=== PATIENT | male | born 1960 | race American Indian/Alaskan Native ===

== ENCOUNTER 2020-08-29 08:38 | Outpatient (CLI) | payer OTHER ==
--- NOTE | 2020-08-29 10:10 | Cat Scan Report ---
CT ABDOMEN AND PELVIS WITHOUT CONTRAST INDICATION / CLINICAL INFORMATION: MALIGNANT OF NEOPLASM OF PROSTATE. TECHNIQUE: Axial CT images were obtained through the abdomen and pelvis without IV contrast. Sagittal and christopher l reformatted images. All CT scans at this location are performed using CT dose reduction for ALARA b y means of automated exposure control. COMPARISON: None available. FINDINGS: LOWER CHEST: No significant abnormality. LIVER: No significant abnormality. GALLBLADDER: No significant abnormality. BILE DUCTS: No significant abnormality. PANCREAS: No significant abnormality. SPLEEN: No significant abnormality. ADRENALS: No significant abnormality. RIGHT KIDNEY and URETER: No significant abnormality. LEFT KIDNEY and URETER: A large stone is identified in the distal left ureter measuring up to 1.4 x 1 .5 x 2.5 cm. There is minimal dilatation of the left ureter. The left kidney is unremarkable. STOMACH and SMALL BOWEL: No significant abnormality. COLON: Moderate diffuse diverticulosis of the colon. No acute inflammation. APPENDIX: No significant abnormality. PERITONEUM: No free fluid. No free air. No fluid collection. LYMPH NODES: No significant adenopathy. AORTA and ARTERIES: No significant abnormality. IVC and VEINS: No significant abnormality. URINARY BLADDER: No significant abnormality. REPRODUCTIVE ORGANS: No significant abnormality. The prostate gland is normal size and contour ADDITIONAL FINDINGS: Small umbilical hernia containing fat is noted. SKELETAL SYSTEM: No significant abnormality. No suspicious bony lesion. IMPRESSION: No evidence for metastatic disease to the abdomen or pelvis. Large distal left ureteral stone as described. Minimal left hydroureter. Diverticulosis of the colon. Small umbilical hernia containing fat. Signer Name: Anuj Stiles Jr, MD Signed: 08/29/2020 10:05 AM Workstation Name: [id number]
--- NOTE | 2020-08-29 12:57 | Nuclear Medicine Report ---
NUCLEAR MEDICINE BONE SCAN, LIMITED INDICATION / CLINICAL INFORMATION: MALIGNANT NEOPLASM OF PROSTATE. TECHNIQUE: 26 mCi of Tc-99m MDP were injected IV. Images were obtained of the . COMPARISON: No relevant prior imaging study available. FINDINGS: BONES: No osseous lesion or other abnormality. JOINTS: Degenerative activity. SOFT TISSUES: No significant abnormality. ADDITIONAL FINDINGS: None. IMPRESSION: 1. No evidence for osseous metastasis. Signer Name: Kyrie Cisneros MD Signed: 08/29/2020 12:52 PM Workstation Name: [id number]
== END 2020-08-29 08:39 | disposition home or self-care (01) ==
LOC: NM 08:38
PROVIDERS: ATTEND Urology
DX: N20.1 Calculus of ureter (principal); K57.30 Diverticulosis of large intestine without perforation or abscess without bleeding; C61 Malignant neoplasm of prostate; K42.9 Umbilical hernia without obstruction or gangrene
CPT/HCPCS: 74176; 78306; A9503

== ENCOUNTER 2020-09-28 06:31 | Day surgery (SDC) | payer OTHER ==
[2020-09-23 09:54] LABS: Basophils # (Auto) 0.1 K/mm3 (0.0-0.1); Basophils % (Auto) 0.9 % (0.0-1.8); Eosinophils # (Auto) 0.2 K/mm3 (0.0-0.4); Eosinophils % (Auto) 2.5 % (0.0-4.3); Hemoglobin 12.2 gm/dl (11.8-15.2); Lymphocytes # (Auto) 1.4 K/mm3 (1.2-5.4); Lymphocytes % (Auto) 22.9 % (13.4-35.0); Mean Corpuscular HGB Conc 34 % (32-34); Mean Corpuscular Volume 82 fl (84-94); Monocytes # (Auto) 0.6 K/mm3 (0.0-0.8); Monocytes % (Auto) 9.3 % (0.0-7.3); Platelet Count 299 K/mm3 (140-440); Red Blood Count 4.38 M/mm3 (3.65-5.03); Red Cell Distribution Width 16.6 % (13.2-15.2)
[2020-09-23 10:14] LABS: Alanine Aminotransferase 16 units/L (7-56); Albumin 4.2 g/dL (3.9-5); Blood Urea Nitrogen 17 mg/dL (9-20); Calcium 9.5 mg/dL (8.4-10.2); Hemolysis Index 11
[2020-09-23 10:16] LABS: BUN/Creatinine Ratio 28
[~2020-09-28 06:31] MED LIST: BACTERIOSTATIC SODIUM CHLORIDE 0.9% 30 ML VIAL INFILTRATI ONE; LACTATED RINGERS 1,000 ML IV SCH; ceFAZolin/STERILE WATER 2 GM/20 ML SYRINGE IV NR
[2020-09-28] MEDS ORDERED: MIDAZOLAM 2 MG/2 ML INJ IV NR (07:15)
--- NOTE | 2020-09-28 07:15 | Anesthesia Day of Surgery ---
Anesthesia Day of Surgery - Day of Surgery Patient Examined: Yes Patient H&P Reviewed: Yes Patient is NPO: Yes
--- NOTE | 2020-09-28 07:15 | Anesthesia Consultation ---
Anesthesia Consult and Med Hx Date of service: 09/28/20 - Airway Anesthetic Teeth Evaluation: Good ROM Head & Neck: Adequate Mental/Hyoid Distance: Adequate Mallampati Class: Class II Intubation Access Assessment: Good - Pre-Operative Health Status ASA Pre-Surgery Classification: ASA2 Proposed Anesthetic Plan: General - Pulmonary Hx Smoking: Yes (SMOKED CIGARETTES AGE 15- AGE 18 THEN QUIT) Hx Asthma: No (+2FS) COPD: No Hx Pneumonia: No Hx Sleep Apnea: No (ELKE PRE SCREEN HIGH RISK.) - Cardiovascular System Hx Hypertension: Yes Hx Heart Attack/AMI: No Hx Pacemaker: No Hx Internal Defibrillator: No - Central Nervous System Hx Seizures: No Hx Back Pain: Yes Hx Psychiatric Problems: No - Endocrine Hx End Stage Renal Disease: No Hx Cirrhosis: No Hx Liver Disease: No - Hematic Hx Anemia: No Hx Sickle Cell Disease: No - Other Systems Hx Alcohol Use: No Hx Substance Use: No Hx Cancer: Yes Hx Obesity: Yes
[2020-09-28] MEDS ORDERED: HYDROmorphone 1 MG/1 ML INJ IV PRN ×2 (07:16)
[2020-09-28] MEDS ORDERED: ONDANSETRON 4 MG/2 ML INJ IV PRN (07:16)
[2020-09-28] MEDS ORDERED: LIDOCAINE MPF (2%) 20 MG/1 ML VIAL 5 ML ONE (07:38)
[2020-09-28] MEDS ORDERED: ONDANSETRON 4 MG/2 ML INJ ONE (07:38)
[2020-09-28] MEDS ORDERED: PHENYLEPHRINE/NS 1,000 MCG/10 ML SYRINGE (OR USE) IV ONE (07:38)
[2020-09-28] MEDS ORDERED: dexAMETHasone 20 MG/5 ML VIAL ONE (07:38)
[2020-09-28] MEDS ORDERED: GLYCOPYRROLATE 0.4 MG/2 ML INJ ONE (07:38)
[2020-09-28] MEDS ORDERED: fentaNYL 100 MCG/2 ML INJ ONE ×2 (07:39→09:13)
[2020-09-28] MEDS ORDERED: propofoL 200 MG/20 ML VIAL IV ONE (07:39)
[2020-09-28] MEDS ORDERED: IOHEXOL 300 MG/ML 100ML IR ONE (08:45)
[2020-09-28] MEDS ORDERED: WATER FOR IRRIG STERILE 2000 ML IR ONE (09:00)
--- NOTE | 2020-09-28 09:26 | Short Stay Summary ---
Short Stay Documentation Date of service: 09/28/20 - History H&P: obtained from office - Allergies and Medications Current Medications: Allergies No Known Allergies Allergy (Verified 09/28/20 06:23) Home Medications Medication Instructions Recorded Confirmed Last Taken Type One-Daily Multi-Vitamin 1 tab PO DAILY 09/22/20 09/28/20 09/21/20 08:00 History Rosuvastatin Calcium [Crestor] 20 mg PO DAILY 09/22/20 09/28/20 09/27/20 08:00 History Valsartan/Hydrochlorothiazide 160 mg PO DAILY 09/22/20 09/28/20 09/27/20 08:00 History Vitamin E 1 cap PO DAILY 09/22/20 09/28/20 09/21/20 08:00 History Active Medications Cefazolin Sodium (Ancef/Sterile Water 2 Gm/20 Ml) 2 gm IV PREOP NR Stop: 09/28/20 23:59 Hydromorphone HCl (Dilaudid) 0.25 mg IV Q10MIN PRN PRN Reason: Pain, Moderate (4-6) Hydromorphone HCl (Dilaudid) 0.5 mg IV Q10MIN PRN PRN Reason: Pain , Severe (7-10) Lactated Ringer's (Lactated Ringers) 1,000 mls @ 75 mls/hr IV DIRECT CARRINGTON Last Admin: 09/28/20 07:05 Dose: 75 mls/hr Documented by: Midazolam HCl (Versed) 2 mg IV PREOP NR Stop: 09/28/20 23:59 Last Admin: 09/28/20 07:35 Dose: 2 mg Documented by: Ondansetron HCl (Zofran) 4 mg IV ONCE PRN PRN Reason: Nausea And Vomiting - Brief post op/procedure progress note Date of procedure: 09/28/20 Pre-op diagnosis: large left ureteral stone Post-op diagnosis: same Procedure: cysto, rpg, ureteroscopy laser, stent with short internal string-----staged Anesthesia: GETA Surgeon: JUDE NELSON Estimated blood loss: minimal Condition: stable - Hospital course Hospital course: macrobid, norco , brochure, strainer - Disposition Condition at discharge: Stable Disposition: DC-01 TO HOME OR SELFCARE Short Stay Discharge Plan Follow up with: FABY QURESHI [Other] - 7 Days
[2020-09-28 10:27] VITALS: BP 133/69
--- NOTE | 2020-09-28 10:27 | Operative Report ---
PREOPERATIVE DIAGNOSES: Left distal ureteral stone (2 cm), prostate cancer. POSTOPERATIVE DIAGNOSES: Left distal ureteral stone (2 cm), prostate cancer. PROCEDURE: Cystoscopy, bilateral retrograde pyelograms, balloon dilatation, left ureter. Holmium laser lithotripsy of left distal ureteral stone, double-J stent (6-Russian 24 cm) with a short internal string, Liao catheter placed. SURGEON: Venkata Argueta MD ANESTHESIA: General. ESTIMATED BLOOD LOSS: Minimal. FLUIDS: Crystalloid. COMPLICATIONS: No complications. INDICATIONS: This patient is a 60-year-old gentleman initially seen for an elevated PSA of 5. He underwent prostate biopsies, found to have [place] 7 adenocarcinoma of the prostate, 13-[address] scan revealed a large what initially was described as a 1 cm stone. He presents now for intervention of his stone before treatment of his prostate cancer. DESCRIPTION OF PROCEDURE: The patient was taken to the operative suite. The patient was taken to the operative suite, placed in a supine position after adequate general anesthesia. After adequate general anesthesia, placed in a dorsal lithotomy position, prepped and draped in a sterile fashion. Pancystourethroscopy was performed with 22-Russian Storz cystoscope, no urethral abnormalities. Prostate minimally obstructing. Bladder, no tumors or stones were noted. His left ureter was abnormal. It had a wellington deformity on the dorsal aspect and stricture once inside the ureter. Bilateral retrograde pyelograms were obtained with an 8-Russian Edgardo catheter and 8 mL of contrast. No filling defects or obstruction on the right. Left side, obvious stone in the distal ureter. On manipulation, I was able to get 2 wires up the left collecting system under fluoroscopic guidance. Balloon dilatation with a 4 cm 18-Russian balloon, was then able to get a rigid ureteroscope on the yellow stone. Holmium laser lithotripsy with a 500 micron fiber, starting at 4 going up to 17 newberry. Fragmentation of the stone, I was able to reduce the volume and it appears to be a little over half; however, started to develop some bleeding, making it difficult to visualize the stone. At that point, I elected to stop. A 6-Russian 24 cm double-J stent was left indwelling with a short internal string and left a 20-Russian Liao catheter to facilitate passage of the stones and hematuria. Rectal exam was benign. He was extubated and taken to recovery room. He will go home on Macrobid and [place]. JOB# [id number] [facility]
--- NOTE | 2020-09-28 10:37 | Post Anesthesia Evaluation ---
- Post Anesthesia Evaluation Patient Participated: Yes Airway Patent: Yes Stable Respiratory Function: Yes Nausea/Vomiting: No Temp > 96.8F: Yes Pain Manageable: Yes Adequeate Hydration: Yes Anesthesia Complications: No Block Receding Appropriately: Not Applicable Patient on Ventilator: No
[2020-09-28] MEDS ORDERED: HYDROcodone/ACETAMINOPHEN 5-325 MG TAB PO PRN (10:50)
--- NOTE | 2020-09-28 14:16 | Fluoroscopy Report ---
INTRAOPERATIVE FLUOROSCOPY: ABDOMEN INDICATION: History of left ureteral stone. Guidance for left ureteroscopy with stone retrieval and stent placeme nt. TECHNIQUE: Intraoperative spot images were obtained during the procedure. FINDINGS: Aircraft Systems Repairer imaging demonstrates a large left UVJ stone as seen on the prior CT. The stent was subsequently broken apart and a left ureteral stent was placed that appears unremarkable. There is unremarkable o pacification of the right ureter and right renal collecting system. Please see the procedural report for further details. Fluoroscopy Time: 57 seconds. Fluoroscopy Images: 10. Signer Name: Cem Lozoya MD Signed: 09/28/2020 2:11 PM Workstation Name: [id number]
--- NOTE | 2020-09-28 14:16 | Fluoroscopy Report ---
INTRAOPERATIVE FLUOROSCOPY: ABDOMEN INDICATION: History of left ureteral stone. Guidance for left ureteroscopy with stone retrieval and stent placeme nt. TECHNIQUE: Intraoperative spot images were obtained during the procedure. FINDINGS: Shell Plater imaging demonstrates a large left UVJ stone as seen on the prior CT. The stent was subsequently broken apart and a left ureteral stent was placed that appears unremarkable. There is unremarkable o pacification of the right ureter and right renal collecting system. Please see the procedural report for further details. Fluoroscopy Time: 57 seconds. Fluoroscopy Images: 10. Signer Name: Cem Lozoya MD Signed: 09/28/2020 2:11 PM Workstation Name: [id number]
== END 2020-09-28 06:32 | disposition home or self-care (01) ==
LOC: OR 06:31
PROVIDERS: ATTEND Urology
DX: N20.1 Calculus of ureter (principal); Z20.828 Contact with and (suspected) exposure to other viral communicable diseases; C61 Malignant neoplasm of prostate; N13.5 Crossing vessel and stricture of ureter without hydronephrosis; E78.00 Pure hypercholesterolemia, unspecified; I10 Essential (primary) hypertension; E66.9 Obesity, unspecified; Z98.890 Other specified postprocedural states; Z79.899 Other long term (current) drug therapy; Z87.891 Personal history of nicotine dependence; Z68.38 Body mass index [BMI] 38.0-38.9, adult
CPT/HCPCS: 36415; 52356; 74420; 74485; 80053; 85025; A4217; C1726; C1758; C1769; C2617; J0690; J1100; J2250; J2370; J2405; J2704; J3010; J7120; Q9967; U0003

== ENCOUNTER 2020-10-26 05:51 | Day surgery (SDC) | payer OTHER ==
[2020-10-21 10:46] LABS: BUN/Creatinine Ratio 16; Blood Urea Nitrogen 11 mg/dL (9-20); Calcium 9.8 mg/dL (8.4-10.2); Hemolysis Index 0
[~2020-10-26 05:51] MED LIST changes: -BACTERIOSTATIC SODIUM CHLORIDE 0.9% 30 ML VIAL INFILTRATI ONE; -LACTATED RINGERS 1,000 ML IV SCH
[2020-10-26] MEDS ORDERED: LACTATED RINGERS 1,000 ML IV SCH (06:00)
[2020-10-26] MEDS ORDERED: MIDAZOLAM 2 MG/2 ML INJ IV NR (06:00)
[2020-10-26] MEDS ORDERED: LIDOCAINE MPF (2%) 20 MG/1 ML VIAL 5 ML ONE (07:24)
[2020-10-26] MEDS ORDERED: dexAMETHasone 20 MG/5 ML VIAL ONE (07:24)
[2020-10-26] MEDS ORDERED: propofoL 200 MG/20 ML VIAL IV ONE (07:24)
[2020-10-26] MEDS ORDERED: KETOROLAC 30 MG/1 ML INJ ONE (07:24)
--- NOTE | 2020-10-26 07:25 | Anesthesia Consultation ---
Anesthesia Consult and Med Hx Date of service: 10/26/20 - Airway Anesthetic Teeth Evaluation: Good ROM Head & Neck: Adequate Mental/Hyoid Distance: Adequate Mallampati Class: Class III Intubation Access Assessment: Possibly Difficult - Pulmonary Exam CTA: Yes - Cardiac Exam Cardiac Exam: RRR - Pre-Operative Health Status ASA Pre-Surgery Classification: ASA2 Proposed Anesthetic Plan: General - Pulmonary Hx Smoking: Yes (quit 1980) Hx Respiratory Symptoms: No Hx Sleep Apnea: No (ELKE PRE SCREEN HIGH RISK.) - Cardiovascular System Hx Hypertension: Yes Hx Heart Attack/AMI: No Hx Percutaneous Transluminal Coronary Angioplasty (PTCA): No - Central Nervous System CVA: No Hx Back Pain: Yes - Gastrointestinal Hx Gastroesophageal Reflux Disease: No - Endocrine Hx Renal Disease: No Hx Liver Disease: No Hx Insulin Dependent Diabetes: No Hx Non-Insulin Dependent Diabetes: No Hx Thyroid Disease: No - Other Systems Hx Cancer: Yes (prostate ca) Hx Obesity: Yes (BMI 38) - Additional Comments Anesthesia Medical History Comments: No hx anesthetic complications.
--- NOTE | 2020-10-26 07:25 | Anesthesia Day of Surgery ---
Anesthesia Day of Surgery - Day of Surgery Patient Examined: Yes Patient H&P Reviewed: Yes Patient is NPO: Yes
[2020-10-26] MEDS ORDERED: fentaNYL 100 MCG/2 ML INJ IV PRN (07:30)
[2020-10-26] MEDS ORDERED: ONDANSETRON 4 MG/2 ML INJ IV PRN (08:00)
[2020-10-26] MEDS ORDERED: WATER FOR IRRIG STERILE 2000 ML IR ONE (08:15)
[2020-10-26] MEDS ORDERED: fentaNYL 100 MCG/2 ML INJ ONE (08:42)
--- NOTE | 2020-10-26 09:30 | Short Stay Summary ---
Short Stay Documentation Date of service: 10/26/20 - History H&P: obtained from office - Allergies and Medications Current Medications: Allergies No Known Allergies Allergy (Verified 09/28/20 06:23) Home Medications Medication Instructions Recorded Confirmed Last Taken Type One-Daily Multi-Vitamin 1 tab PO DAILY 09/22/20 10/26/20 10/25/20 09:00 History Rosuvastatin Calcium [Crestor] 10 mg PO DAILY 09/22/20 10/26/20 10/25/20 09:00 History Benicar HCT 40-12.5 mg 1 tab PO DAILY 10/19/20 10/26/20 10/25/20 09:00 History Active Medications Cefazolin Sodium (Ancef/Sterile Water 2 Gm/20 Ml) 2 gm IV PREOP NR Stop: 10/26/20 23:59 Fentanyl (Sublimaze) 50 mcg IV Q5MIN PRN PRN Reason: Pain , Severe (7-10) Stop: 10/26/20 17:00 Lactated Ringer's (Lactated Ringers) 1,000 mls @ 100 mls/hr IV DIRECT CARRINGTON Stop: 10/26/20 23:59 Last Admin: 10/26/20 06:10 Dose: 100 mls/hr Documented by: Midazolam HCl (Versed) 2 mg IV PREOP NR Stop: 10/26/20 23:00 Last Admin: 10/26/20 07:28 Dose: 2 mg Documented by: Ondansetron HCl (Zofran) 4 mg IV ONCE PRN PRN Reason: Nausea And Vomiting Stop: 10/26/20 17:00 - Brief post op/procedure progress note Date of procedure: 11/02/20 Pre-op diagnosis: left ureteral stone Post-op diagnosis: same Procedure: cysto, rpg, left ureteroscopy , laser large stone, basket extraction, stent with internal string Anesthesia: GETA Surgeon: JUDE NELSON Condition: stable - Hospital course Hospital course: norco bactrim post op info on chart - Disposition Condition at discharge: Stable Disposition: DC-01 TO HOME OR SELFCARE Short Stay Discharge Plan Follow up with: FABY CASH [Other] - 7 Days
[2020-10-26] MEDS ORDERED: PHENYLEPHRINE/NS 1,000 MCG/10 ML SYRINGE (OR USE) IV ONE (09:40)
[2020-10-26] MEDS ORDERED: HYDROcodone/ACETAMINOPHEN 5-325 MG TAB PO PRN (10:00)
[2020-10-26 10:12] VITALS: BP 116/73
--- NOTE | 2020-10-26 10:25 | Fluoroscopy Report ---
INTRAOPERATIVE FLUOROSCOPY INDICATION / CLINICAL INFORMATION: LT URETERAL STONE. TECHNIQUE: Intraoperative spot images were obtained during the procedure. FINDINGS: Intraoperative fluoroscopy images for retrograde urography. See operative/procedure note by performing physician for full details. Fluoroscopy Time: 35 seconds. Fluoroscopy Images: 4. Signer Name: Kyrie Cisneros MD Signed: 10/26/2020 10:20 AM Workstation Name: [id number]
--- NOTE | 2020-10-26 13:37 | Post Anesthesia Evaluation ---
- Post Anesthesia Evaluation Patient Participated: Yes Airway Patent: Yes Stable Respiratory Function: Yes Nausea/Vomiting: No Temp > 96.8F: Yes Pain Manageable: Yes Adequeate Hydration: Yes Anesthesia Complications: No
--- NOTE | 2020-10-26 18:13 | Operative Report ---
PREOPERATIVE DIAGNOSIS: Left distal ureteral stone, 2 cm (staged procedure). POSTOPERATIVE DIAGNOSIS: Left distal ureteral stone, 2 cm (staged procedure). PROCEDURES PERFORMED: Cystoscopy, left retrograde pyelogram, left ureteroscopy, holmium laser lithotripsy, basket stone extraction, double-J stent exchange. SURGEON: Venkata Argueta MD ANESTHESIA: General. ESTIMATED BLOOD LOSS: Minimal. FLUIDS: Crystalloid. COMPLICATIONS: No complications. INDICATIONS: This patient is a 60-year-old gentleman known to our service, history of prostate cancer. Part of his workup was a CT abdomen and pelvis, which revealed a distal stone. He underwent ureteroscopy of a large 2 cm egg-like stone what appears to be an ureterocele. Stent was placed previously and holmium lithotripsy of the stone was performed; however, due to some bleeding and edema, could not fully treat the stone. He presents now for reevaluation. DESCRIPTION OF PROCEDURE: The patient was taken to the operative suite, placed in a supine position. After adequate general anesthesia, placed in a dorsal lithotomy position, prepped and draped in a sterile fashion. Pancystourethroscopy was performed with a 22-Lithuanian Storz cystoscope, no urethral or prostate abnormalities; his bladder, no tumors or stones; however, there was ureterocele on the left with obvious stone and stent on kings[place] machine operator and visualization of the lower aspect of the stent. Meatotomies were obtained, small cut into the 12 o'clock position of the ureter. At this point, I was able to advance the 22-Lithuanian cystoscope into this dilated ureterocele. Obvious large stone could be appreciated. Stent was removed. A 0.035 Glidewire was placed. Holmium lithotripsy was performed at 520 micron fiber, starting at 4 newberry going up to 14 newberry. Adequate fragmentation could be appreciated, extracted some of these fragments, which will be given to the patient and sent for routine pathologic evaluation. A new 6-Lithuanian 24 cm stent was placed with a short internal string. The patient tolerated the procedure well. Rectal exam was benign. He was extubated and taken to recovery room in stable condition. He will go home on Bactrim and [place] and follow up in the office. JOB# [id number] [facility]/NTS
== END 2020-10-26 10:35 | disposition home or self-care (01) ==
LOC: OR 05:51
PROVIDERS: ATTEND Urology
DX: N20.1 Calculus of ureter (principal); Z20.828 Contact with and (suspected) exposure to other viral communicable diseases; E78.00 Pure hypercholesterolemia, unspecified; I10 Essential (primary) hypertension; E66.9 Obesity, unspecified; Z79.899 Other long term (current) drug therapy; Z87.891 Personal history of nicotine dependence; Z98.890 Other specified postprocedural states; Z85.46 Personal history of malignant neoplasm of prostate; Z68.38 Body mass index [BMI] 38.0-38.9, adult
CPT/HCPCS: 36415; 52356; 74420; 80048; A4217; C1758; C1769; C2617; J0690; J1100; J1885; J2250; J2370; J2405; J2704; J3010; J7120; Q9967; U0003

== ENCOUNTER 2021-01-02 05:59 | Observation (INO) | payer OTHER ==
[2020-12-28 10:37] LABS: Hematocrit 37.1 % (35.5-45.6); Hemoglobin 12.3 gm/dl (11.8-15.2); Mean Corpuscular HGB Conc 33 % (32-34); Mean Corpuscular Volume 81 fl (84-94); Platelet Count 276 K/mm3 (140-440); Red Blood Count 4.55 M/mm3 (3.65-5.03); Red Cell Distribution Width 18.5 % (13.2-15.2)
--- NOTE | 2020-12-28 10:37 | Anesthesia Consultation ---
Anesthesia Consult and Med Hx Date of service: 01/02/21 - Airway Anesthetic Teeth Evaluation: Good ROM Head & Neck: Adequate Mental/Hyoid Distance: Adequate Mallampati Class: Class III Intubation Access Assessment: Probably Good - Pre-Operative Health Status ASA Pre-Surgery Classification: ASA2 Proposed Anesthetic Plan: General Nerve Block: TAP - Pulmonary Hx Smoking: Yes (STARTED AGE 15 YR QUIT AGE 18 YRS) Hx Asthma: No Hx Respiratory Symptoms: No (+2FS) COPD: No Hx Pneumonia: No Hx Sleep Apnea: No (ELKE PRE SCREEN HIGH RISK) - Cardiovascular System Hx Hypertension: Yes Hx Heart Attack/AMI: No Hx Percutaneous Transluminal Coronary Angioplasty (PTCA): No Hx Pacemaker: No Hx Internal Defibrillator: No Hx Heart Murmur: No - Central Nervous System Hx Seizures: No CVA: No Hx Back Pain: No Hx Psychiatric Problems: No - Gastrointestinal Hx Gastroesophageal Reflux Disease: No - Endocrine Hx Renal Disease: No Hx End Stage Renal Disease: No Hx Cirrhosis: No Hx Liver Disease: No Hx Insulin Dependent Diabetes: No Hx Non-Insulin Dependent Diabetes: No Hx Thyroid Disease: No - Hematic Hx Anemia: No Hx Sickle Cell Disease: No - Other Systems Hx Alcohol Use: No Hx Substance Use: No Hx Cancer: Yes Hx Obesity: Yes (BMI 38)
[2020-12-28 10:53] LABS: Alanine Aminotransferase 16 units/L (7-56); Albumin 4.2 g/dL (3.9-5); Blood Urea Nitrogen 12 mg/dL (9-20); Calcium 9.4 mg/dL (8.4-10.2); Hemolysis Index 2
[2020-12-28 11:07] LABS: BUN/Creatinine Ratio 17
[2021-01-02] MEDS ORDERED: GABAPENTIN 300 MG CAP PO NR (06:00)
[2021-01-02] MEDS ORDERED: CELECOXIB 200 MG CAP PO NR (06:00)
[2021-01-02] MEDS ORDERED: fentaNYL 100 MCG/2 ML INJ IV PRN (06:00)
[2021-01-02] MEDS ORDERED: MIDAZOLAM 2 MG/2 ML INJ IV NR (06:00)
[2021-01-02] MEDS ORDERED: ACETAMINOPHEN 500 MG TAB PO SCH (06:00)
[2021-01-02] MEDS ORDERED: BACTERIOSTATIC SODIUM CHLORIDE 0.9% 30 ML VIAL INFILTRATI ONE (06:04)
[2021-01-02] MEDS: LACTATED RINGERS 1,000 ML IV SCH ×2 (06:55→15:30)
[2021-01-02] MEDS ORDERED: SODIUM CHLORIDE P/F VIAL 10 ML 30 ML ONE (07:06)
[2021-01-02] MEDS ORDERED: BUPIVACAINE-EPINEPHRINE/PF 0.5%-1:200,000 (30 ML) VIAL INFILTRATI ONE ×2 (07:06→07:10)
[2021-01-02] MEDS ORDERED: LIDOCAINE (1%) 10 MG/1 ML VIAL 20 ML MDV ONE (07:06)
[2021-01-02] MEDS ORDERED: cloNIDine/PF 1,000 MCG/10 ML VIAL EP ONE (07:06)
[2021-01-02] MEDS ORDERED: dexAMETHasone 4 MG/ML VIAL ONE (07:06)
[2021-01-02] MEDS ORDERED: CALCIUM CHLORIDE 1,000 MG/10 ML SYRINGE IV ONE ×2 (07:10→09:03)
[2021-01-02] MEDS ORDERED: CITRIC ACID-SOD CITRATE 500 ML IV ONE (07:10)
[2021-01-02] MEDS ORDERED: THROMBIN (RECOMBINANT) 5,000 UNIT VIAL TP ONE ×2 (07:10→09:02)
[2021-01-02] MEDS ORDERED: NEOSTIGMINE 10MG/10 ML INJ MDV ONE (07:34)
[2021-01-02] MEDS ORDERED: ONDANSETRON 4 MG/2 ML INJ ONE (07:34)
[2021-01-02] MEDS ORDERED: ROCURONIUM 50 MG/5 ML INJ IV ONE (07:34)
[2021-01-02] MEDS ORDERED: HYDROmorphone 1 MG/1 ML INJ ONE (07:34)
[2021-01-02] MEDS ORDERED: LIDOCAINE MPF (2%) 20 MG/1 ML VIAL 5 ML ONE (07:34)
[2021-01-02] MEDS ORDERED: PHENYLEPHRINE/NS 1,000 MCG/10 ML SYRINGE (OR USE) IV ONE (07:34)
[2021-01-02] MEDS ORDERED: GLYCOPYRROLATE 0.4 MG/2 ML INJ ONE (07:34)
[2021-01-02] MEDS ORDERED: dexAMETHasone 20 MG/5 ML VIAL ONE (07:34)
[2021-01-02] MEDS ORDERED: propofoL 200 MG/20 ML VIAL IV ONE (07:35)
--- NOTE | 2021-01-02 07:37 | Anesthesia Day of Surgery ---
Anesthesia Day of Surgery - Day of Surgery Patient Examined: Yes Patient H&P Reviewed: Yes Patient is NPO: Yes
[2021-01-02] MEDS ORDERED: ONDANSETRON 4 MG/2 ML INJ IV PRN (08:00)
[2021-01-02] MEDS ORDERED: ceFAZolin/STERILE WATER 2 GM/20 ML SYRINGE IV NR (08:00)
[2021-01-02] MEDS ORDERED: HYDROmorphone 1 MG/1 ML INJ IV PRN (08:00)
[2021-01-02] MEDS ORDERED: LACTATED RINGERS 1,000 ML ONE (08:56)
[2021-01-02] MEDS ORDERED: WATER FOR IRRIG STERILE 1,500 ML BOTTLE IR ONE (09:02)
[2021-01-02] MEDS ORDERED: SODIUM CHLORIDE 0.9% IRRIG SOLN 2000 ML IR ONE (09:03)
[2021-01-02] MEDS ORDERED: SODIUM CHLORIDE 0.9% 250ML 0 ML ONE (09:36)
[2021-01-02] MEDS ORDERED: METHYLENE BLUE 50 MG/10 ML AMP ONE (09:36)
--- NOTE | 2021-01-02 10:59 | Short Stay Summary ---
Short Stay Documentation Date of service: 01/02/21 - History H&P: obtained from office - Allergies and Medications Current Medications: Allergies No Known Allergies Allergy (Verified 09/28/20 06:23) Home Medications Medication Instructions Recorded Confirmed Last Taken Type One-Daily Multi-Vitamin 1 tab PO DAILY 09/22/20 12/26/20 01/01/21 History Rosuvastatin Calcium [Crestor] 10 mg PO DAILY 09/22/20 12/26/20 01/01/21 History Benicar HCT 40-12.5 mg 1 tab PO DAILY 10/19/20 12/26/20 01/01/21 History Active Medications Acetaminophen (Acetaminophen 500 Mg Tab) 1,000 mg PO PREOP CARRINGTON Last Admin: 01/02/21 06:30 Dose: 1,000 mg Documented by: Cefazolin Sodium (Cefazolin/Sterile Water 2 Gm/20 Ml Syringe) 2 gm IV PREOP NR Stop: 01/02/21 21:00 Celecoxib (Celecoxib 200 Mg Cap) 200 mg PO PREOP NR Stop: 01/02/21 23:59 Last Admin: 01/02/21 06:30 Dose: 200 mg Documented by: Fentanyl (Fentanyl 100 Mcg/2 Ml Inj) 100 mcg IV ONCE PRN PRN Reason: sedation for nerve block Stop: 01/02/21 23:59 Last Admin: 01/02/21 07:17 Dose: 100 mcg Documented by: Gabapentin (Gabapentin 300 Mg Cap) 300 mg PO PREOP NR Stop: 01/02/21 23:59 Last Admin: 01/02/21 06:30 Dose: 300 mg Documented by: Hydromorphone HCl (Hydromorphone 1 Mg/1 Ml Inj) 0.5 mg IV Q10MIN PRN PRN Reason: Pain , Severe (7-10) Stop: 01/02/21 17:00 Lactated Ringer's (Lactated Ringers) 1,000 mls @ 100 mls/hr IV DIRECT CARRINGTON Stop: 01/02/21 23:59 Last Admin: 01/02/21 06:55 Dose: 100 mls/hr Documented by: Midazolam HCl (Midazolam 2 Mg/2 Ml Inj) 2 mg IV PREOP NR Stop: 01/02/21 23:59 Last Admin: 01/02/21 07:17 Dose: 2 mg Documented by: Ondansetron HCl (Ondansetron 4 Mg/2 Ml Inj) 4 mg IV ONCE PRN PRN Reason: Nausea And Vomiting Stop: 01/02/21 21:00 - Brief post op/procedure progress note Date of procedure: 01/02/21 Pre-op diagnosis: prostate cancer Post-op diagnosis: same Procedure: robotic prostatectomy Anesthesia: CHRIS Surgeon: JUDE NELSON Estimated blood loss: other (600cc) Pathology: list (prostate) Specimen disposition: to lab Condition: stable - Hospital course Hospital course: bactrim,norco, & post op info DANIEL REMOVED --HOME WITH [facility] - Disposition Condition at discharge: Stable Short Stay Discharge Plan Follow up with: LAYLA MATA [Other] - 7 Days
[2021-01-02] MEDS ORDERED: NALOXONE 0.4 MG/1 ML INJ IV PRN (11:23)
[2021-01-02] MEDS ORDERED: HYDROcodone/ACETAMINOPHEN 5-325 MG TAB PO PRN (11:23)
[2021-01-02] MEDS ORDERED: MORPHINE 2 MG/1 ML INJ IV PRN (11:23)
--- NOTE | 2021-01-02 12:07 | Consultation ---
History of Present Illness - Reason for Consult Consult date: 01/02/21 Requesting physician: JUDE NELSON - History of Present Illness This is a 52-year-old male with prostate cancer, hypertension and hyperlipidemia who is s/p robotic prostatectomy. Patient denies any chest pain, cough, difficulty breathing, fevers, chills, nausea/vomiting/diarrhea, hemoptysis, n ight sweats, recent travel or recent known exposure to COVID-19. Patient does state that he had a recent weight loss without trying of about 10 pounds over the past 4 months. We were consulted for medical management while inpatient. Past History Past Medical History: hypertension, hyperlipidemia Past Surgical History: Other (Nephrolithiasis ( August or September 2020)) Social history: single, Lives alone, full code. denies: smoking, alcohol abuse, prescription drug abuse, IV drug use Family history: hypertension Medications and Allergies Allergies Allergy/AdvReac Type Severity Reaction Status Date / Time No Known Allergies Allergy Verified 09/28/20 06:23 Home Medications Medication Instructions Recorded Confirmed Last Taken Type One-Daily Multi-Vitamin 1 tab PO DAILY 09/22/20 12/26/20 01/01/21 History Rosuvastatin Calcium [Crestor] 10 mg PO DAILY 09/22/20 12/26/20 01/01/21 History Benicar HCT 40-12.5 mg 1 tab PO DAILY 10/19/20 12/26/20 01/01/21 History Active Meds: Active Medications Acetaminophen (Acetaminophen 500 Mg Tab) 1,000 mg PO PREOP CARR[place] Last Admin: 01/02/21 06:30 Dose: 1,000 mg Documented by: Hydrocodone Bitart/Acetaminophen (Hydrocodone/Acetaminophen 5-325 Mg Tab) 2 each PO Q4H PRN PRN Reason: Pain, Moderate (4-6) Cefazolin Sodium (Cefazolin/Sterile Water 2 Gm/20 Ml Syringe) 2 gm IV PREOP NR Stop: 01/02/21 21:00 Celecoxib (Celecoxib 200 Mg Cap) 200 mg PO PREOP NR Stop: 01/02/21 23:59 Last Admin: 01/02/21 06:30 Dose: 200 mg Documented by: Fentanyl (Fentanyl 100 Mcg/2 Ml Inj) 100 mcg IV ONCE PRN PRN Reason: sedation for nerve block Stop: 01/02/21 23:59 Last Admin: 01/02/21 07:17 Dose: 100 mcg Documented by: Gabapentin (Gabapentin 300 Mg Cap) 300 mg PO PREOP NR Stop: 01/02/21 23:59 Last Admin: 01/02/21 06:30 Dose: 300 mg Documented by: Hydromorphone HCl (Hydromorphone 1 Mg/1 Ml Inj) 0.5 mg IV Q10MIN PRN PRN Reason: Pain , Severe (7-10) Stop: 01/02/21 17:00 Lactated Ringer's (Lactated Ringers) 1,000 mls @ 100 mls/hr IV DIRECT C[place] Stop: 01/02/21 23:59 Last Admin: 01/02/21 06:55 Dose: 100 mls/hr Documented by: Cefazolin Sodium (Ancef/Ns 1 Gm/50 Ml) 1 gm in 50 mls @ 100 mls/hr IV Q8H CARRINGTON; Protocol Stop: 01/03/21 00:29 Midazolam HCl (Midazolam 2 Mg/2 Ml Inj) 2 mg IV PREOP NR Stop: 01/02/21 23:59 Last Admin: 01/02/21 07:17 Dose: 2 mg Documented by: Miscellaneous Medication (Benicar Hct 40-12.5 Mg) 1 tab PO DAILY C[place] Miscellaneous Medication (One-Daily Multi-Vitamin) 1 tab PO DAILY C[place] Miscellaneous Medication (Rosuvastatin Calcium [Crestor]) 10 mg PO DAILY C[place] Morphine Sulfate (Morphine 2 Mg/1 Ml Inj) 2 mg IV Q4H PRN PRN Reason: Pain, Moderate (4-6) Naloxone HCl (Naloxone 0.4 Mg/1 Ml Inj) 0.1 mg IV Q2MIN PRN PRN Reason: Res Rate </= 8 or 02 SAT < 92% Ondansetron HCl (Ondansetron 4 Mg/2 Ml Inj) 4 mg IV ONCE PRN PRN Reason: Nausea And Vomiting Stop: 01/02/21 21:00 Review of Systems Constitutional: weight loss, no weight gain, no fever, no chills, no sweats, no night sweats, no anorexia, no fatigue, no lethargy Ears, nose, mouth and throat: no ear pain, no ear discharge, no tinnitis, no decreased hearing, no nose pain, no nasal congestion, no nasal discharge, no sinus pressure, no sinus pain, no epistaxis, no bleeding gums Cardiovascular: edema (Occasional bilateral ankle edema), no chest pain, no orthopnea, no palpitations, no rapid/irregular heart beat, no syncope, no lightheadedness, no shortness of breath Respiratory: no cough, no cough with sputum, no excessive sputum, no hemoptysis, no shortness of breath, no dyspnea on exertion, no pleurisy, no pain on inspiration, no sleep apnea, no respiratory infections, no home oxygen Gastrointestinal: heartburn (Occasional), no abdominal pain, no nausea, no vomiting, no diarrhea, no constipation, no change in bowel habits, no hematemesis, no coffee ground emesis, no BRBPR, no melena, no hematochezia, no loss of appetite, no early satiety Genitourinary Male: kidney stones, no dysuria, no hematuria, no flank pain, no discharge, no urinary frequency, no urinary hesitancy, no nocturia, no incontinence Rectal: no pain, no incontinence, no bleeding Musculoskeletal: no neck stiffness, no neck pain, no shooting arm pain, no arm numbness/tingling, no low back pain, no shooting leg pain, no leg numbness/tingling, no morning stiffness, no muscle weakness, no frequent falls Integumentary: no rash, no pruritis, no redness, no sores, no wounds, no jaundice, no boils, no color changes Neurological: no head injury, no transient paralysis, no paralysis, no weakness, no parathesias, no numbness, no tingling, no seizures, no syncope, no tremors, no headaches, no memory loss, no changes in smell/taste Psychiatric: no anxiety, no memory loss, no change in appetite, no suicidal ideation, no disorientation Endocrine: weight change, no cold intolerance, no heat intolerance, no polyphagia, no excessive thirst, no polydipsia, no polyuria, no nocturia, no increase in ring/shoe/hat size, no palpatations Hematologic/Lymphatic: no easy bruising, no easy bleeding Allergic/Immunologic: no urticaria, no allergic rhinitis, no wheezing Exam - Constitutional Vitals: Temp Pulse Resp BP Pulse Ox 97.5 F L 73 17 130/75 98 01/02/21 11:32 01/02/21 12:00 01/02/21 12:00 01/02/21 12:00 01/02/21 12:00 General appearance: Present: no acute distress - EENT Eyes: Present: PERRL, EOM intact ENT: hearing intact, clear oral mucosa, dentition normal - Neck Neck: Present: normal ROM - Respiratory Respiratory effort: normal Respiratory: bilateral: CTA - Cardiovascular Rhythm: regular Heart Sounds: Present: S1 & S2. Absent: systolic murmur, diastolic murmur - Extremities Extremities: no ischemia, pulses intact, pulses symmetrical, No edema, normal te mperature, normal color, Full ROM Peripheral Pulses: within normal limits - Abdominal General gastrointestinal: Present: soft, non-tender, non-distended, absent bowel sounds Male genitourinary: Present: tender, penile edema - Integumentary Integumentary: Present: clear, warm, dry - Musculoskeletal Musculoskeletal: strength equal bilaterally - Psychiatric Psychiatric: appropriate mood/affect, cooperative - Neurologic Neurologic: CNII-XII intact, no focal deficits, moves all extremities - Allied Health Allied health notes reviewed: nursing Results - Labs CBC & Chem 7: 12/28/20 09:20 12/28/20 09:20 Assessment and Plan Prostate cancer -Preop Ancef 2 g x 1 -Postop Ancef x2 -S/p robotic prostatectomy on 01/02 -Analgesia as needed -Pulmonary hygiene Hypertension -Resume home antihypertensive regimen -Blood pressure monitoring per protocol -Hydralazine as needed for SBP greater than 160 Hypercholesterolemia -Continue home statin therapy Obesity -Encouraged lifestyle and dietary changes DVT prophylaxis -SCDs to bilateral lower extremity while in bed
--- NOTE | 2021-01-02 13:02 | Operative Report ---
PREOPERATIVE DIAGNOSIS: Prostate cancer. POSTOPERATIVE DIAGNOSIS: Prostate cancer. PROCEDURE: Robotic-assisted laparoscopic prostatectomy, bladder neck suspension. SURGEON: Venkata Argueta MD MANAGER OF SOFTWARE: Veronique Tovar. ANESTHESIA: General. ESTIMATED BLOOD LOSS: 600 mL. FLUIDS: Crystalloid and Cell Saver. DRAINS: Shayan-Duvall drain x 1. COMPLICATIONS: No complications. INDICATIONS: This patient is a 60-year-old gentleman who was found to have an elevated PSA 5.8 and underwent transrectal ultrasound. On biopsy of his prostate, he was found to have [place] 3+4 in 13 or 14 cores. Bone scan and CT scan negative, except for a left 1 cm distal stone, which this was addressed prior to his prostate surgery. He presents now for prostatectomy. Risks, benefits, and complications were explained. DESCRIPTION OF PROCEDURE: The patient was taken to the operative suite, placed in a supine position. After adequate general anesthesia, he was then placed in a modified dorsal lithotomy position. Abdominal anesthetic block was also administered. Liao catheter was placed on the field. A 1 cm supraumbilical incision was made with the Bovie. Towel clips were placed. Drop test with the Veress needle was negative. Opening pressure was 2 cm of water. Insufflation to 15 cm of water was performed without difficulty. A 15 cm cephalad to pubic symphysis was marked and then 10 cm lateral and additional 10 cm lateral was used for 8-mm robotic ports on the left x2 and an 8-mm robotic port on the left followed by a 10-mm helper port and a 5-mm helper port. They were all placed under direct vision. Robotic cart was docked between the legs. The patient was placed in exaggerated dorsal lithotomy position. Next, no signs of bleeding or metastasis could be appreciated. The patient had significant amounts of adipose tissue that made it somewhat tedious to do his procedure. Veronique Tovar was present at the bedside throughout the procedure to assist with surgical dissection. Next, attention was taken to the posterior aspect of the prostate and bladder. Second arch was scored. Dissection was taken to expose the seminal vesicles and vas deferens. Dissection was then taken to the apex of the prostate. Copious irrigation was performed. Adequate hemostasis was achieved. Althea was placed due to the oozing from the adipose tissue. Next, attention was taken to the anterior abdominal wall, lateral to the lateral umbilical ligament was scored bilaterally and then across the midline to drop the bladder. Endopelvic fascia was opened bilaterally exposing the dorsal vein complex, which was controlled with a 60-mm vascular stapler. Next, attention was taken to the bladder neck, which was transected anteriorly. Liao catheter was pulled anterior to assist with posterior dissection. In 12 o'clock position, 2-0 Vicryl stitch was placed in the bladder neck to assist with dissection. Posterior bladder neck was transected exposing the seminal vesicles and vas deferens. They were pulled anteriorly. Lateral pedicles were controlled with 60-mm vascular stapler. Attention was then taken to the posterior aspect of the prostate. This was dissected to free up the apex. The apex of the urethra was transected as well. Prostate was dissected free, placed in the EndoCatch bag. Bladder neck was then controlled. Bladder neck anastomotic stitch was placed using 2-0 V-Loc stitch and then the corresponding aspect of the urethra, running stitch was placed bilaterally followed by a new 18-[place] Liao catheter. New Liao catheter was placed, 15 mL of sterile water was in the balloon, irrigated clear. Bladder neck suspension placing the V-Loc stitch in the posterior aspect of the pubic rami bilaterally. [place] were removed. Copious irrigation was performed. Adequate hemostasis achieved. Platelet-rich plasma and platelet poor plasma was injected around the anastomosis as well as a platelet membrane. A 10-mm Shayan-Duvall drain was brought out through the 8-mm port on the left side. The ports were removed with no signs of bleeding. The patient was undocked. The supraumbilical port was removed. The incision was extended to allow removal of the prostate. A #1 Vicryl [id number] stitch was placed to close the supraumbilical incision. A 2-0 Vicryl in an interrupted fashion was used to close the skin on the 8-mm incisions. The Liao catheter sideport was folded over and tied with 0 silk in an interrupted fashion. The patient tolerated the procedure well. He was extubated and taken to recovery room. He will be observed overnight. JOB# [id number] [facility]
--- NOTE | 2021-01-02 13:49 | Post Anesthesia Evaluation ---
- Post Anesthesia Evaluation Patient Participated: Yes Airway Patent: Yes Stable Respiratory Function: Yes Nausea/Vomiting: No Pain Manageable: Yes Adequeate Hydration: Yes Anesthesia Complications: Yes Block Receding Appropriately: Yes (TAP block for post op analgesia)
[2021-01-02] MEDS: ceFAZolin/NS 1 GM/50 ML 1 GM/50 ML BAG IV SCH ×2 (15:50→23:53)
[2021-01-03 06:44] LABS: Hemoglobin 9.8 gm/dl (11.8-15.2); Mean Corpuscular HGB Conc 33 % (32-34); Mean Corpuscular Volume 81 fl (84-94); Platelet Count 235 K/mm3 (140-440)
[2021-01-03 07:01] LABS: Blood Urea Nitrogen 14 mg/dL (9-20); Calcium 8.5 mg/dL (8.4-10.2); Hemolysis Index 0
[2021-01-03 07:07] LABS: BUN/Creatinine Ratio 20
[2021-01-03 07:39] VITALS: BP 150/67
[2021-01-03] MEDS ORDERED: NON-FORMULARY EACH (Rosuvastatin Calcium [Crestor] 20 MG Tablet) PO SCH (10:00)
[2021-01-03] MEDS ORDERED: MULTIVITAMINS,THER W-MINERALS TAB PO SCH (10:00)
[2021-01-03] MEDS ORDERED: [UNRECOGNIZED DRUG - OTHER] PO SCH (10:00)
[2021-01-03] MEDS ORDERED: LOSARTAN 50 MG TAB PO SCH (10:00)
[2021-01-03] MEDS ORDERED: hydroCHLOROthiazide 12.5 MG CAP PO SCH (10:00)
[2021-01-03] MEDS ORDERED: BENICAR HCT PO SCH (10:00)
--- NOTE | 2021-01-03 11:54 | Post Anesthesia Evaluation ---
- Post Anesthesia Evaluation Patient Participated: Yes Airway Patent: Yes Stable Respiratory Function: Yes Nausea/Vomiting: No Pain Manageable: Yes Anesthesia Complications: No Block Receding Appropriately: Not Applicable Patient on Ventilator: No Other Comments: post op day 1. pt is a+o x3. denies pain. no distress noted. pt resting comfortable in bed. pending discharge today.
== END 2021-01-03 14:20 | disposition home or self-care (01) ==
LOC: OR 05:59 → 3B-SURG 11:23
PROVIDERS: ADMIT Urology; ATTEND Urology
DX: C61 Malignant neoplasm of prostate (principal); Z20.822 Contact with and (suspected) exposure to COVID-19; I10 Essential (primary) hypertension; E78.5 Hyperlipidemia, unspecified; N20.0 Calculus of kidney; E78.00 Pure hypercholesterolemia, unspecified; E66.9 Obesity, unspecified; Z68.37 Body mass index [BMI] 37.0-37.9, adult
CPT/HCPCS: 36415; 55866; 64450; 80048; 80053; 85027; 86850; 86900; 86901; 88309; 96365; 96366; A4217; A9270; G0378; J0690; J0735; J1100; J1170; J2250; J2370; J2405; J2704; J2710; J3010; J7120; Q9968; S2900; U0003; J7050